=== PATIENT | female | born 1960 | race African-American/Black ===

== ENCOUNTER 2022-11-03 09:09 | Emergency (ER) | payer OTHER ==
[~2022-11-03] VITALS: Ht 175.3 cm; Wt 86.0 kg
[2022-11-03 09:13] VITALS: O2SAT 98
[2022-11-03] MEDS ORDERED: SODIUM CHLORIDE 0.9% 1,000 ML IV ONE (09:30)
[2022-11-03 10:40] VITALS: BP 130/80; PULSE 70; RESP 16; TEMP 98.3
== END 2022-11-03 10:40 | disposition left against medical advice (07) ==
LOC: ER 09:32
DX: R55 Syncope and collapse (principal); R42 Dizziness and giddiness; F41.9 Anxiety disorder, unspecified; E03.9 Hypothyroidism, unspecified
CPT/HCPCS: 71045; 93005; 96360; 99283; J7030; Z7610